=== PATIENT | female | born 1980 | race Hispanic/Latino ===

== ENCOUNTER 2017-10-19 16:02 | Emergency (ER) | payer BC, OTHER ==
[2017-10-19] MEDS ORDERED: Acetaminophen 500 MG TAB ONE ×2 (17:14→17:15)
== END 2017-10-19 17:32 | disposition home or self-care (01) ==
LOC: SCSER 16:02
DX: J06.9 Acute upper respiratory infection, unspecified (principal); B34.9 Viral infection, unspecified
CPT/HCPCS: 99284

== ENCOUNTER 2018-03-21 08:02 | Emergency (ER) | payer OTHER ==
--- NOTE | 2018-03-21 09:12 | RAD ---
RIGHT HAND 3 VIEWS: Date: 03/21/18 HISTORY: Right hand pain. FINDINGS: Joint spaces are preserved. No acute fracture, dislocation, or radiopaque foreign bodies. IMPRESSION: No acute osseous abnormalities are demonstrated. POS: [facility]
== END 2018-03-21 09:12 | disposition home or self-care (01) ==
LOC: SCSER 08:02
DX: S63.501A Unspecified sprain of right wrist, initial encounter (principal); X58.XXXA Exposure to other specified factors, initial encounter

== ENCOUNTER 2019-03-13 20:15 | Emergency (ER) | payer OTHER ==
[2019-03-13] MEDS ORDERED: Ketorolac Tromethamine 30 MG/ML VIAL ONE (20:50)
--- NOTE | 2019-03-13 21:04 | RAD ---
XR Chest Pa Lat STANDARD History: [Pain] Comparison: Radiograph January 24, 2015 Findings: The lungs are clear. No pneumothorax or effusion. Cardiac silhouette and mediastinal contou rs are within normal limits. No acute osseous abnormality. Impression: No acute intrathoracic abnormality.
[2019-03-13] MEDS ORDERED: Diazepam 5 MG TAB ONE (21:11)
--- NOTE | 2019-03-13 21:22 | RAD ---
XR Thoracic Spine 3 V STANDARD History: [Pain] Comparison: Chest radiograph same day Findings: No fracture. No malalignment. Vertebral body heights and disc spaces are maintained. Impression: Normal examination of the thoracic spine.
== END 2019-03-13 21:30 | disposition home or self-care (01) ==
LOC: SCSER 20:15
DX: M54.6 Pain in thoracic spine (principal)
CPT/HCPCS: 71046; 72072; 96372; J1885

== ENCOUNTER 2020-04-11 17:18 | Emergency (ER) | payer OTHER ==
[2020-04-12 18:25] LABS: SARS-CoV-2 MS2 Positive; SARS-CoV-2 N Gene Positive; SARS-CoV-2 S Gene Negative; SARS-CoV-2 orf1ab Negative
== END 2020-04-11 18:07 | disposition home or self-care (01) ==
LOC: ERS 17:18
DX: Z20.828 Contact with and (suspected) exposure to other viral communicable diseases (principal)
CPT/HCPCS: 87635; 99283; U0003

== ENCOUNTER 2020-04-13 12:20 | Emergency (ER) | payer OTHER | END 2020-04-13 12:45 | disposition home or self-care (01) | LOC: ERS 12:20 | DX: Z20.828 Contact with and (suspected) exposure to other viral communicable diseases (principal) | CPT/HCPCS: 99283 ==